=== PATIENT | male | born 1975 | race African-American/Black ===

== ENCOUNTER 2018-02-26 21:18 | Emergency (ER) | payer OTHER ==
[~2018-02-26] VITALS: Ht 172.7 cm; Wt 90.7 kg
[2018-02-26 22:21] LABS: RDW 14.5 % (10.5-14.5)
[2018-02-26 22:23] LABS: ABSOLUTE NEUTROPHILS 4.1 thou/uL (1.4-8.2); BASOPHILS 0.6 % (0.0-2.0); EOSINOPHILS 2.3 % (0.0-3.0); HEMATOCRIT 46.9 % (42.0-52.0); HEMOGLOBIN 15.7 gm/dL (14.0-18.0); LYMPHOCYTES 26.9 % (24.0-44.0); MCHC 33.4 g/dL (28.0-37.0); MCV 83.7 fL (80.0-100.0); MONOCYTES 9.5 % (1.0-8.0); PLATELET COUNT 314 thou/uL (150-400); POLYS 60.7 % (36.0-66.0); WBC 6.7 thou/uL (4.0-11.0)
[2018-02-26 22:28] LABS: URINE BLOOD NEGATIVE (Negative); URINE CLARITY CLEAR; URINE COLOR YELLOW; URINE GLUCOSE-RANDOM* NEGATIVE (Negative); URINE KETONES TRACE (Negative); URINE LEUKOCYTES-REFLEX TRACE (Negative); URINE NITRITE-REFLEX NEGATIVE (Negative); URINE PROTEIN (DIPSTICK) NEGATIVE (Negative); URINE SPECIFIC GRAVITY >= 1.030 (1.005-1.035); URINE UROBILINOGEN 0.2 E.U./dl (0.2-1.0)
[2018-02-26 22:29] LABS: ICTOTEST (BILI CONFIRMATORY) Negative (Negative); URINE BILIRUBIN NEGATIVE (Negative)
[2018-02-26 22:36] LABS: ANION GAP 12 mmol/L (7-16); BUN 19 mg/dL (7-18); CALCIUM 9.3 mg/dL (8.5-10.1); CHLORIDE 102 mmol/L (98-107); CO2 27 mmol/L (21-32); CREATININE 1.3 mg/dL (0.7-1.3); GLUCOSE 92 mg/dL (74-106); SODIUM 141 mmol/L (136-145)
[2018-02-26 22:40] LABS: AMP/METHAMP POSITIVE (Negative); BARBITURATES Negative (Negative); BENZODIAZEPINES Negative (Negative); COCAINE Negative (Negative); METHADONE Negative (Negative); OPIATES Negative (Negative); PCP Negative (Negative)
[2018-02-26 22:41] LABS: ALBUMIN 4.1 g/dL (3.4-5.0); SALICYLATE 2.9 mg/dL (2.8-20.0); SGOT 26 U/L (15-37); SGPT 23 U/L (30-65); TOTAL BILIRUBIN 1.4 mg/dL (<0.1-1.0); TOTAL PROTEIN 7.9 g/dL (6.4-8.2)
[2018-02-27 00:05] VITALS: BP 138/98
== END 2018-02-27 00:06 | disposition home or self-care (01) ==
LOC: ER 21:18
PROVIDERS: Emergency Medicine
DX: R44.0 Auditory hallucinations (principal); E87.6 Hypokalemia; F15.10 Other stimulant abuse, uncomplicated; F17.210 Nicotine dependence, cigarettes, uncomplicated

== ENCOUNTER 2018-03-30 14:45 | Emergency (ER) | payer OTHER ==
[~2018-03-30] VITALS: Ht 170.2 cm; Wt 86.6 kg
[2018-03-30] MEDS ORDERED: ZYPREXA 10 MG T10 MG PO (14:54)
[2018-03-30] MEDS ORDERED: CENTANY30 GM TOP (15:35)
[2018-03-30] MEDS ORDERED: MOBIC15 MG PO (15:37)
[2018-03-30 16:14] VITALS: BP 178/108
== END 2018-03-30 16:05 | disposition home or self-care (01) ==
LOC: ER 14:45
DX: S90.425A Blister (nonthermal), left lesser toe(s), initial encounter (principal); X58.XXXA Exposure to other specified factors, initial encounter; Y93.89 Activity, other specified; Y92.89 Other specified places as the place of occurrence of the external cause; Y99.8 Other external cause status; F17.210 Nicotine dependence, cigarettes, uncomplicated

== ENCOUNTER 2018-04-24 01:16 | Emergency (ER) | payer OTHER ==
[~2018-04-24] VITALS: Ht 170.2 cm; Wt 89.4 kg
[~2018-04-24 01:16] MED LIST: CENTANY30 GM TOP; MOBIC15 MG PO; ZYPREXA 10 MG T10 MG PO
[2018-04-24 01:35] LABS: ABSOLUTE NEUTROPHILS 4.4 thou/uL (1.4-8.2); BASOPHILS 0.8 % (0.0-2.0); EOSINOPHILS 2.3 % (0.0-3.0); HEMATOCRIT 44.7 % (42.0-52.0); HEMOGLOBIN 14.8 gm/dL (14.0-18.0); MCHC 33.3 g/dL (28.0-37.0); MCV 84.2 fL (80.0-100.0); MONOCYTES 7.5 % (1.0-8.0); PLATELET COUNT 331 thou/uL (150-400); POLYS 61.4 % (36.0-66.0); RDW 15.5 % (10.5-14.5); WBC 7.1 thou/uL (4.0-11.0)
[2018-04-24 01:42] LABS: ANION GAP 9 mmol/L (7-16); BUN 11 mg/dL (7-18); CALCIUM 8.8 mg/dL (8.5-10.1); CHLORIDE 106 mmol/L (98-107); CO2 28 mmol/L (21-32); CREATININE 1.1 mg/dL (0.7-1.3); GLUCOSE 76 mg/dL (74-106); POTASSIUM 4.5 mmol/L (3.5-5.1); SODIUM 143 mmol/L (136-145)
[2018-04-24 01:51] LABS: TROPONIN-I <0.06 ng/mL (<0.06)
[2018-04-24] MEDS ORDERED: CARAFATE 1 GM TA1 GM PO (02:27)
[2018-04-24] MEDS ORDERED: PROTONIX40 MG PO (02:27)
[2018-04-24 02:49] VITALS: BP 143/76
--- NOTE | 2018-04-24 09:21 | EKG ---
[place] [address] [facility] [employer] [place] [address] ELECTROCARDIOGRAM REPORT Name: SANDRA VALLE Room [facility]: [facility] [id number] Admission: 04/24/18 Attend Phys: Discharge: 04/24/18 Date of : 77 Report #: [id number] THIS REPORT FOR: //name// [facility] ED Test Date: 2018-04-24 Test Time: 01:19:21 Pat Name: SANDRA VALLE Department: Room: Gender: Order Processing Specialist: Sanjana HERNANDEZ : 1975 Requested By: Anthony Vásquez Order Number: [id number] MD: Neymar Crews Measurements Intervals [place] Rate: 105 P: 76 NE: 137 QRS: 50 QRSD: 94 T: 50 QT: 321 QTc: 425 Interpretive Statements Sinus tachycardia ST segment elevation, consider early repolarization No previous ECG available for comparison Electronically Signed On 04-24-2018 9:21:14 [employer] by Neymar Crews [email or web address] <ELECTRONICALLY SIGNED> By: Neymar Crews MD, [facility] 04/24/18 0921 0119 0119 Neymar Crews MD, FACC /EPI
== END 2018-04-24 02:53 | disposition home or self-care (01) ==
LOC: ER 01:16
PROVIDERS: Emergency Medicine
DX: K21.9 Gastro-esophageal reflux disease without esophagitis (principal); R07.89 Other chest pain; F17.210 Nicotine dependence, cigarettes, uncomplicated

== ENCOUNTER 2018-05-23 22:34 | Emergency (ER) | payer OTHER ==
[~2018-05-23] VITALS: Ht 170.2 cm; Wt 89.4 kg
[~2018-05-23 22:34] MED LIST changes: +CARAFATE 1 GM TA1 GM PO; +PROTONIX40 MG PO
[2018-05-23] MEDS ORDERED: TYLENOL EXTRA500 MG PO (23:42)
[2018-05-23 23:57] VITALS: BP 123/91
== END 2018-05-23 23:58 | disposition home or self-care (01) ==
LOC: ER 22:34
DX: S20.212A Contusion of left front wall of thorax, initial encounter (principal); K42.9 Umbilical hernia without obstruction or gangrene; F17.210 Nicotine dependence, cigarettes, uncomplicated; W01.0XXA Fall on same level from slipping, tripping and stumbling without subsequent striking against object, initial encounter; Y93.89 Activity, other specified; Y92.89 Other specified places as the place of occurrence of the external cause; Y99.8 Other external cause status